=== PATIENT | female | born 1995 | race African-American/Black ===

== ENCOUNTER 2017-06-02 06:37 | Emergency (ER) | payer OTHER ==
[~2017-06-02] VITALS: Ht 160 cm; Wt 80.0 kg
[~2017-06-02 06:37] MED LIST: IBUP-232 PO; ZYRT10TA12 PO
[2017-06-02 06:47] VITALS: BP 137/92; PULSE 84; RESP 20; TEMP 97.8; O2SAT 99
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
[2017-06-02 07:39] LABS: AUTOMATED NEUTROPHIL # 5.8 TH/MM3 (1.8-7.7); BASOPHIL # 0.1 TH/MM3 (0-0.2); BASOPHIL % 0.7 % (0.0-2.0); EOSINOPHIL # 0.1 TH/MM3 (0-0.4); EOSINOPHIL % 1.2 % (0.0-4.0); HEMATOCRIT 39.7 % (35.0-46.0); HEMO FLAGS DIFF FINAL; LYMPH % 27.2 % (9.0-44.0); LYMPHOCYTE # 2.5 TH/MM3 (1.0-4.8); MEAN CELL VOLUME 83.9 FL (80.0-100.0); MEAN CORPUSCULAR HEMOGLOBIN 28.6 PG (27.0-34.0); MEAN CORPUSCULAR HGB CONC 34.1 % (32.0-36.0); MONO % 7.4 % (0.0-8.0); NEUT % 63.5 % (16.0-70.0); PLATELET COUNT 267 TH/MM3 (150-450); RED BLOOD COUNT 4.73 MIL/MM3 (4.00-5.30); RED CELL DISTRIBUTION WIDTH 13.6 % (11.6-17.2); WHITE BLOOD COUNT 9.2 TH/MM3 (4.0-11.0)
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
[2017-06-02 07:48] LABS: CHLORIDE 106 MEQ/L (98-107); POTASSIUM 4.1 MEQ/L (3.5-5.1); SODIUM (NA) 140 MEQ/L (136-145)
[2017-06-02 07:51] LABS: ANION GAP 8 MEQ/L (5-15); BICARBONATE 25.7 MEQ/L (21.0-32.0); BLOOD UREA NITROGEN 13 MG/DL (7-18)
[2017-06-02 07:54] LABS: GLOMERULAR FILTRATION RATE 106 ML/MIN (>89)
[2017-06-02 07:58] LABS: CREATINE KINASE 141 U/L (26-192)
--- NOTE | 2017-06-02 15:27 | EKG ---
Date Performed: 06/02/2017 Time Performed: 07:25:02 PTAGE: 21 years EKG: Sinus rhythm NON-SPECIFIC ST/T WAVE CHANGES NO PREVIOUS TRACING DOCTOR: Mega Lanza Interpretating Date/Time 06/02/2017 15:25:30
== END 2017-06-02 08:41 | disposition home or self-care (01) ==
LOC: PHED 06:37
DX: T75.4XXA Electrocution, initial encounter (principal); R07.89 Other chest pain; R20.2 Paresthesia of skin; W86.0XXA Exposure to domestic wiring and appliances, initial encounter
CPT/HCPCS: 71010; 80048; 82550; 82552; 84484; 85025; 93005